=== PATIENT | female | born 1970 | race Caucasian/White ===

== ENCOUNTER 2021-05-19 08:52 | Inpatient (IN) ==
[2021-05-19 09:18] LABS: ABG BASE EXCESS -5.8 mmol/L (-2.0-2.0); ABG HCO3 18.3 mmol/L (22-26)
[2021-05-19 09:20] LABS: ABG ALLEN TEST POS
--- NOTE | 2021-05-19 10:01 | DR.GENAD ---
HPI Time Seen Time Seen by Provider: 05/19/21 09:15 HPI Comment HPI Comment: A 50 y/o female presents with SOB, having been tested COVID positive last week. Her O2 sat in Triage was in the 30s. COVID-19 Coronavirus symptoms experienced: Shortness of Breath Nurses notes reviewed Nurses Notes Review: Yes Source History Provided: Patient Mode of Arrival Mode of Arrival: Ambulatory Timing Came on: Gradually PMH PMH Past Medical History: Diabetes, Hypertension and Hypothyroidism Past Surgical History: Yes Surgical History: Social History Do you use any recreational Drugs:: No ROS Review of Systems Constitutional: Malaise and Fatigue Eyes: No Symptoms Reported ENTM: No Symptoms Reported Respiratoy: Short of Breath Cardiovascular: No Symptoms Reported Gastrointestinal/Abdominal: No Symptoms Reported Genitourinary: No Symptoms Reported Neurological: No Symptoms Reported Musculoskeletal: No Symptoms Reported Integumentary: No Symptoms Reported Hematologic/Lymphatic: No Symptoms Reported Endocrine: No Symptoms Reported Psychiatric: No Symptoms Reported PE Vital Signs Vitals: Temperature 99.9 F Pulse Rate [Apical] 99 Pulse Rate 108 Respiratory Rate 26 Blood Pressure [Left Arm] 135/64 Blood Pressure 156/69 O2 Sat by Pulse Oximetry 95 General Limitations: Physical Limitation General Appearance: Alert and In Distress Head Head Exam: Normal Inspection, Atraumatic and Normocephalic Eyes Eye exam: Normal Appearance, PERRL and EOMI ENT ENT Exam: Normal Exam, Normal Oropharynx, Normal External Ear Exam, Mucous Membranes Moist and TM's Normal Bilaterally Neck Neck Exam: Normal Inspection, Full ROM and Trachea Midline Chest Chest Inspection: Normal Inspection and Symmetric Chest Wall Rise Respiratory Respiratory Exam: Normal Lung Sounds Bilat Cardiovascular Cardiovascular Exam: Regular Rate, Normal Rhythm, Normal Heart Sounds, +S1 and +S2 Abdominal Exam Abdominal Exam: Normal Inspection, Normal Bowel Sounds and Soft Extremities Extremities Exam: Normal Inspection and Full ROM Back Back Exam: Normal Inspection and Full ROM Neurologic Neurological Exam: Alert and Oriented X3 Psychiatric Psychiatric Exam: Normal Affect and Normal Mood Skin Skin Exam: Intact and Normal Color COURSE Reevaluation 1st: Unchanged ROR Labs Reviewed Result Diagrams: 05/19/21 10:08 05/19/21 10:08 Laboratory: WBC 9.1 X10^3/uL (3.6-10.0) 05/19/21 10:08 RBC 4.25 X10^6/uL (3.5-5.4) 05/19/21 10:08 Hgb 12.9 g/dL (12.0-16.0) 05/19/21 10:08 Hct 37.6 % (36.0-47.0) 05/19/21 10:08 MCV 88.4 fL (80.0-100.0) 05/19/21 10:08 MCH 30.4 pg (27.0-34.0) 05/19/21 10:08 MCHC 34.3 g/dL (33.0-35.0) 05/19/21 10:08 RDW 13.6 % (11.6-16.5) 05/19/21 10:08 Plt Count 385 X10^3/uL (150.0-450.0) 05/19/21 10:08 MPV 7.1 fL (7.4-11.0) L 05/19/21 10:08 Neut % (Auto) 79.3 % (42.0-75.0) H 05/19/21 10:08 Lymph % (Auto) 14.9 % (21.0-51.0) L 05/19/21 10:08 [place] % (Auto) 5.3 % (0.0-13.0) 05/19/21 10:08 Eos % (Auto) 0.1 % (0.9-2.9) L 05/19/21 10:08 Baso % (Auto) 0.4 % (0.2-1.0) 05/19/21 10:08 Neut # (Auto) 7.2 x10^3/uL (2.2-4.8) H 05/19/21 10:08 Lymph # (Auto) 1.4 X10^3/uL (1.3-2.9) 05/19/21 10:08 [place] # (Auto) 0.5 x10^3/uL (0.3-0.8) 05/19/21 10:08 Eos # (Auto) 0.0 x10^3/uL (0.0-0.2) 05/19/21 10:08 Baso # (Auto) 0.0 X10^3/uL (0.0-0.1) 05/19/21 10:08 Absolute Nucleated RBC 0.1 /100WBC 05/19/21 10:08 D-Dimer 0.98 ug/ml (0.0-0.57) H* 05/19/21 10:08 Sample Site Rra 05/19/21 09:15 ABG pH 7.380 (7.35-7.45) 05/19/21 09:15 ABG pCO2 31.0 mmHg (35.0-45.0) L 05/19/21 09:15 ABG pO2 42.0 mmHg (80.0-100.0) L* 05/19/21 09:15 ABG HCO3 18.3 mmol/L (22-26) L 05/19/21 09:15 ABG O2 Saturation 76.0 % (90-100) L* 05/19/21 09:15 ABG Base Excess -5.8 mmol/L (-2.0-2.0) L 05/19/21 09:15 Julius Test Pos 05/19/21 09:15 A-a Gradient 632.0 mmHg 05/19/21 09:15 FiO2 100.0 05/19/21 09:15 Blood Gas Comments Pt arnulfo well eb 05/19/21 09:15 Sodium 140 mmol/L (136-145) 05/19/21 10:08 Corrected Sodium 146 mmol/L (136-145) H 05/19/21 10:08 Potassium 3.8 mmol/L (3.5-5.1) 05/19/21 10:08 Chloride 102 mmol/L (98-107) 05/19/21 10:08 Carbon Dioxide 20.8 mmol/L (21-32) L 05/19/21 10:08 BUN 14 mg/dL (7-18) 05/19/21 10:08 Creatinine 0.68 mg/dL (0.55-1.02) 05/19/21 10:08 Est GFR (MDRD) Af Amer > 60 (>60) 05/19/21 10:08 Est GFR (MDRD) Non-Af > 60 (>60) 05/19/21 10:08 Glucose 331 mg/dL (65-99) H 05/19/21 10:08 Calcium 9.3 mg/dL (8.5-10.1) 05/19/21 10:08 Corrected Calcium 10.4 mg/dL (8.5-10.1) H 05/19/21 10:08 Ferritin 1360 ng/mL (8-252) H 05/19/21 10:08 Total Bilirubin 0.70 mg/dL (0.2-1.0) 05/19/21 10:08 AST 42 Units/L (15-37) H 05/19/21 10:08 ALT 40 Units/L (12-78) 05/19/21 10:08 Alkaline Phosphatase 89 Units/L (46-116) 05/19/21 10:08 C-Reactive Protein 127.30 mg/L (0-3.0) H 05/19/21 10:08 B-Natriuretic Peptide 23.4 pg/mL (0-79) 05/19/21 10:08 Total Protein 7.6 g/dL (6.4-8.2) 05/19/21 10:08 Albumin 2.6 g/dL (3.4-5.0) L 05/19/21 10:08 Globulin 5.0 g/dL (2.5-4.5) H 05/19/21 10:08 Albumin/Globulin Ratio 0.5 Ratio (1.1-2.1) L 05/19/21 10:08 Opioid Opioid Risk Tool Age (Derek box if 16-45): No History of Preadolescent Sexual Abuse: No Total: 0 Total Score Risk Category: Low Risk Copyright: Thony JACOBS predicting aberrant behaviors Diagnosis Discharge Problem: Pneumonia due to 2019-nCoV, Hypoxemia ADDITIONAL NOTES Additional Notes Additional Notes: ISIAH SPICER Nam 50 F 1970 Name: ISIAH SPICER [facility]#: [id number]: [id number] : 1970ex: FLocation: ER Order Number(s): [id number](s):CHEST, 1 VIEW Ordering Physician: Sihra Vasquez Primary Care: SAY PEÑA Service Date: 05/12/21 Service Time: 0654 HISTORY PT STATES" I TESTED POSITIVE YESTERDAY FOR COVID AND MY HEAD HURTS AND I FEEL LIKE SOMETHING HEAVY IS SITTING IN MY CHEST" STUDY CHEST, 1 VIEW COMPARISON None TECHNIQUE AP view of the chest FINDINGS Cardiac and mediastinal contours are within normal limits. Small asymmetric peripheral left mid to lower lung opacity. No definite pleural effusion or pneumothorax. Soft tissue attenuation limits evaluation. IMPRESSION Small asymmetric left mid to lower lung peripheral opacity could represent early COVID 19 pneumonia. Electronically signed by: Ferdinand Tang (May 12, 2021 08:13:02) Report Electronically signed: 05/12/21 0816 CC: Shira Vasquez
[2021-05-19 10:25] LABS: BASOPHILS % (AUTO) 0.4 % (0.2-1.0); EOSINOPHILS % (AUTO) 0.1 % (0.9-2.9); HEMATOCRIT 37.6 % (36.0-47.0); HEMOGLOBIN 12.9 g/dL (12.0-16.0); LYMPHOCYTES # (AUTO) 1.4 X10^3/uL (1.3-2.9); LYMPHOCYTES % (AUTO) 14.9 % (21.0-51.0); MEAN CORPUSCULAR HEMOGLOBIN 30.4 pg (27.0-34.0); MEAN CORPUSCULAR HGB CONC 34.3 g/dL (33.0-35.0); MEAN CORPUSCULAR VOLUME 88.4 fL (80.0-100.0); MEAN PLATELET VOLUME 7.1 fL (7.4-11.0); MONOCYTES # (AUTO) 0.5 x10^3/uL (0.3-0.8); MONOCYTES % (AUTO) 5.3 % (0.0-13.0); NEUTROPHILS # (AUTO) 7.2 x10^3/uL (2.2-4.8); NEUTROPHILS % (AUTO) 79.3 % (42.0-75.0); PLATELET COUNT 385 X10^3/uL (150.0-450.0); RED BLOOD COUNT 4.25 X10^6/uL (3.5-5.4); RED CELL DISTRIBUTION WIDTH 13.6 % (11.6-16.5); WHITE BLOOD COUNT 9.1 X10^3/uL (3.6-10.0)
[2021-05-19 10:36] LABS: ALANINE AMINOTRANSFERASE 40 Units/L (12-78); ALBUMIN 2.6 g/dL (3.4-5.0); ALKALINE PHOSPHATASE 89 Units/L (46-116); ASPARTATE AMINO TRANSFERASE 42 Units/L (15-37); BLOOD UREA NITROGEN 14 mg/dL (7-18); CALCIUM 9.3 mg/dL (8.5-10.1); CARBON DIOXIDE 20.8 mmol/L (21-32); CHLORIDE 102 mmol/L (98-107); COR CA(FOR HYPOALB) 10.4 mg/dL (8.5-10.1); COR NA(FOR HYPERGLY) 146 mmol/L (136-145); CREATININE 0.68 mg/dL (0.55-1.02); SODIUM 140 mmol/L (136-145); TOTAL PROTEIN 7.6 g/dL (6.4-8.2); eGFR NON BLACK RACES > 60 (>60)
[2021-05-19] MEDS ORDERED: SOLU-Medrol 125 MG VIAL IVP ONE (10:52)
[2021-05-19] MEDS ORDERED: REMDESIVIR IV ONE (10:53)
[2021-05-19] MEDS ORDERED: SOLU-Medrol 125 MG VIAL ONE ×2 (10:53→14:39)
[2021-05-19] MEDS ORDERED: NS 250 ML IV 250 ML IV ONE (10:54)
[2021-05-19] MEDS ORDERED: REMDESIVIR 200 MG in NS 100 ML IV 140 ML IV ONE (10:55)
[2021-05-19 12:22] LABS: ABG BASE EXCESS -6.1 mmol/L (-2.0-2.0); ABG HCO3 18.9 mmol/L (22-26)
[2021-05-19 12:23] LABS: ABG ALLEN TEST POS
--- NOTE | 2021-05-19 12:31 | RAD ---
CHEST, 1 VIEWHISTORY: COVID, SOBStudy: Single view of the chest.Comparison:NoneFindings:The cardiomediastinal silhouette is normal. Bilateral interstitial prominence, and alveolar infiltrates. Osseous structures demonstrate no acute abnormality.IMPRESSION:1. Bilateral interstitial prominence and alveolar infiltrates. Findings may represent atypical infection, including viral etiologies.Electronically signed by: LIZBETH SOTELO (May 19, 2021 12:29:07)
[2021-05-19] MEDS ORDERED: SOLU-Medrol 40 MG VIAL IVP SCH (14:02)
[2021-05-19] MEDS: NS 1000 ML 1,000 ML IV SCH (14:20)
[2021-05-19] MEDS: ASCORBIC ACID INJ MULTI-DOSE VIAL 1,500 MG in NS 50 ML IV 50 ML IV SCH ×2 (14:21→22:44)
[2021-05-19] MEDS ORDERED: IVERMECTIN ONE (14:39)
[2021-05-19] MEDS ORDERED: ZOSYN VIAL 3.375 GRAMS IV ONE (14:39)
[2021-05-19] MEDS ORDERED: NS 100 ML IV + SPIKE MINIBAG* 100 ML IV ONE (14:39)
[2021-05-19] MEDS ORDERED: NS 1000 ML 1,000 ML ONE (14:39)
[2021-05-19] MEDS ORDERED: NS 100 ML IV 100 ML ONE (14:39)
[2021-05-19] MEDS ORDERED: ASCORBIC ACID INJ MULTI-DOSE VIAL IV ONE (14:40)
[2021-05-19] MEDS: ZOSYN VIAL 3.375 GRAMS 3.375 G in NS 100 ML IV + SPIKE MINIBAG* 100 ML IV SCH ×2 (14:46→22:44)
[2021-05-19] MEDS: IVERMECTIN PO SCH (14:46)
[2021-05-19] MEDS: SOLU-Medrol 125 MG VIAL IVP SCH ×2 (14:49→22:45)
[2021-05-19] MEDS ORDERED: TYLENOL 325 MG TAB PO PRN (16:12)
[2021-05-19] MEDS ORDERED: TYLENOL 325 MG TAB PO ONE (16:15)
[2021-05-19] MEDS ORDERED: AMARYL TAB 4 MG PO SCH (21:00)
[2021-05-19] MEDS ORDERED: [UNRECOGNIZED DRUG - REMARK] INTRANASAL SCH (21:00)
[2021-05-19] MEDS: BROVANA IN SCH (21:05)
[2021-05-19] MEDS: PULMICORT NEB TX 0.5 MG NEB SCH (21:05)
[2021-05-19] MEDS ORDERED: GLUCOPHAGE ONE (21:11)
[2021-05-19] MEDS: ZINC SULFATE PO SCH (22:44)
[2021-05-19] MEDS: PEPCID TAB 40 MG PO SCH (22:45)
[2021-05-19] MEDS: SINGULAIR TAB 10 MG PO SCH (22:45)
[2021-05-19] MEDS: GLUCOPHAGE PO SCH (22:46)
[2021-05-19] MEDS: LOVENOX INJ 60 MG SYR SC SCH (22:46)
[2021-05-19] MEDS ORDERED: ACTOS PO ONE (23:00)
[2021-05-20] MEDS: ASCORBIC ACID INJ MULTI-DOSE VIAL 1,500 MG in NS 50 ML IV 50 ML IV SCH ×4 (02:31→20:55)
[2021-05-20] MEDS: SOLU-Medrol 125 MG VIAL IVP SCH ×4 (02:31→22:00)
[2021-05-20] MEDS ORDERED: ATIVAN INJ 2 MG VIAL ONE (03:12)
[2021-05-20] MEDS ORDERED: ATIVAN INJ 2 MG VIAL IVP ONE (03:30)
[2021-05-20 06:14] LABS: BASOPHILS % (AUTO) 0.4 % (0.2-1.0); HEMATOCRIT 38.2 % (36.0-47.0); HEMOGLOBIN 12.6 g/dL (12.0-16.0); LYMPHOCYTES # (AUTO) 1.5 X10^3/uL (1.3-2.9); LYMPHOCYTES % (AUTO) 14.8 % (21.0-51.0); MEAN CORPUSCULAR HEMOGLOBIN 29.8 pg (27.0-34.0); MEAN CORPUSCULAR HGB CONC 32.8 g/dL (33.0-35.0); MEAN CORPUSCULAR VOLUME 90.8 fL (80.0-100.0); MEAN PLATELET VOLUME 7.3 fL (7.4-11.0); MONOCYTES # (AUTO) 0.5 x10^3/uL (0.3-0.8); MONOCYTES % (AUTO) 5.2 % (0.0-13.0); NEUTROPHILS # (AUTO) 7.9 x10^3/uL (2.2-4.8); NEUTROPHILS % (AUTO) 79.6 % (42.0-75.0); PLATELET COUNT 401 X10^3/uL (150.0-450.0); RED BLOOD COUNT 4.21 X10^6/uL (3.5-5.4); WHITE BLOOD COUNT 9.9 X10^3/uL (3.6-10.0)
[2021-05-20 06:25] LABS: ALANINE AMINOTRANSFERASE 43 Units/L (12-78); ALBUMIN 2.5 g/dL (3.4-5.0); ALKALINE PHOSPHATASE 105 Units/L (46-116); ASPARTATE AMINO TRANSFERASE 52 Units/L (15-37); BLOOD UREA NITROGEN 19 mg/dL (7-18); CALCIUM 8.7 mg/dL (8.5-10.1); CHLORIDE 110 mmol/L (98-107); COR CA(FOR HYPOALB) 9.9 mg/dL (8.5-10.1); COR NA(FOR HYPERGLY) 149 mmol/L (136-145); CREATININE 0.84 mg/dL (0.55-1.02); SODIUM 144 mmol/L (136-145); TOTAL PROTEIN 7.7 g/dL (6.4-8.2); eGFR NON BLACK RACES > 60 (>60)
[2021-05-20 06:31] LABS: CARBON DIOXIDE 11.4 mmol/L (21-32)
[2021-05-20] MEDS ORDERED: GLUCOPHAGE ONE (08:17)
[2021-05-20] MEDS ORDERED: INVOKANA PO SCH (09:00)
[2021-05-20] MEDS ORDERED: VITAMIN A PO SCH (09:00)
[2021-05-20] MEDS: ZINC SULFATE PO SCH (09:13)
[2021-05-20] MEDS: GLUCOPHAGE PO SCH (09:14)
[2021-05-20] MEDS: SYNTHROID 88 mcg TAB PO SCH (09:14)
[2021-05-20] MEDS: CELEXA PO SCH (09:14)
[2021-05-20] MEDS: IVERMECTIN PO SCH (09:15)
[2021-05-20] MEDS: NexIUM PO SCH (09:15)
[2021-05-20] MEDS: LIPITOR TAB 10 MG PO SCH (09:15)
[2021-05-20] MEDS: TRICOR TAB 160 MG PO SCH (09:16)
[2021-05-20] MEDS: REMDESIVIR 100 MG in NS 250 ML IV 250 ML IV SCH (09:16)
[2021-05-20] MEDS: PEPCID TAB 40 MG PO SCH (09:16)
[2021-05-20] MEDS: LOVENOX INJ 60 MG SYR SC SCH ×2 (09:22→20:54)
[2021-05-20] MEDS: FLONASE NASAL SPRAY ENOSTRIL SCH (09:22)
[2021-05-20] MEDS: PULMICORT NEB TX 0.5 MG NEB SCH ×2 (09:59→20:15)
[2021-05-20] MEDS: BROVANA IN SCH ×2 (09:59→20:15)
[2021-05-20] MEDS: ACTOS PO SCH (12:02)
[2021-05-20] MEDS: NS 1000 ML 1,000 ML IV SCH ×2 (13:55→14:29)
[2021-05-20] MEDS ORDERED: MORPHINE SULFATE INJ 10 MG IVP ONE (20:26)
[2021-05-20 21:47] LABS: BILIRUBIN,URINE NEGATIVE (NEGATIVE); BLOOD/HEMOGLOBIN,URINE 2+ (NEGATIVE); GLUCOSE, URINE 4+ (NEGATIVE); KETONES,URINE 4+ (NEGATIVE); LEUKOCYTE ESTERASE ,URINE NEGATIVE (NEGATIVE); NITRITES,URINE NEGATIVE (NEGATIVE); PROTEIN,URINE 3+ (NEGATIVE); UROBILINOGEN,URINE NORMAL (NORMAL)
[2021-05-20 21:52] LABS: APPEARANCE,URINE CLEAR (CLEAR); COLOR,URINE STRAW (YELLOW)
--- NOTE | 2021-05-20 21:56 | RAD ---
CHEST, 1 VIEWHISTORY: INCREASED SOB, CHANGE IN RESP STATUSStudy: Single view of the chest.Comparison:May 19, 2021Findings:The cardiomediastinal silhouette is normal. Bilateral interstitial prominence, alveolar infiltrates.No change from prior. Osseous structures demonstrate no acute abnormality.IMPRESSION:1. Bilateral interstitial prominence and alveolar infiltrates. No change from prior. Findings may represent atypical infection, including viral etiologies.Electronically signed by: LIZBETH SOTELO (May 20, 2021 21:54:04)
[2021-05-20 21:59] LABS: BACTERIA,URINE TRACE /HPF (NEGATIVE); GRANULAR CASTS,URINE MODERATE /LPF (NEGATIVE); RBC,URINE NONE SEEN /HPF (0-3); SQUAMOUS EPITHELIAL CELL,UR FEW /HPF (NEGATIVE)
[2021-05-20 21:59] LABS: ABG BASE EXCESS -21.5 mmol/L (-2.0-2.0)
[2021-05-20 22:00] LABS: ABG HCO3 7.2 mmol/L (22-26)
[2021-05-20] MEDS ORDERED: LANTUS SC ONE (22:08)
[2021-05-20] MEDS ORDERED: HumuLIN R SUBCUT STA (22:08)
[2021-05-20] MEDS ORDERED: SODIUM BICARBONATE 8.4% INJ ADULT IVP ONE (22:10)
[2021-05-21] MEDS: PEPCID TAB 40 MG PO SCH ×3 (00:20→21:08)
[2021-05-21] MEDS: GLUCOPHAGE PO SCH ×3 (00:20→21:07)
[2021-05-21] MEDS: SINGULAIR TAB 10 MG PO SCH ×2 (00:20→21:08)
[2021-05-21] MEDS: ZINC SULFATE PO SCH ×3 (00:21→21:08)
[2021-05-21] MEDS: SOLU-Medrol 125 MG VIAL IVP SCH ×4 (02:32→21:16)
[2021-05-21] MEDS: ASCORBIC ACID INJ MULTI-DOSE VIAL 1,500 MG in NS 50 ML IV 50 ML IV SCH ×4 (02:32→23:00)
[2021-05-21 05:55] LABS: ABG BASE EXCESS -18.7 mmol/L (-2.0-2.0)
[2021-05-21 05:57] LABS: ABG ALLEN TEST POS
[2021-05-21] MEDS ORDERED: SODIUM BICARBONATE 8.4% INJ ADULT IVP ONE (06:05)
[2021-05-21] MEDS ORDERED: NS 1000 ML 1,000 ML IV ONE (06:07)
[2021-05-21] MEDS ORDERED: NS 1000 ML 500 ML IV ONE (06:09)
[2021-05-21 06:18] LABS: BASOPHILS # (AUTO) 0.1 X10^3/uL (0.0-0.1); BASOPHILS % (AUTO) 0.6 % (0.2-1.0); HEMATOCRIT 40.8 % (36.0-47.0); HEMOGLOBIN 13.3 g/dL (12.0-16.0); LYMPHOCYTES # (AUTO) 2.4 X10^3/uL (1.3-2.9); LYMPHOCYTES % (AUTO) 14.2 % (21.0-51.0); MEAN CORPUSCULAR HEMOGLOBIN 29.9 pg (27.0-34.0); MEAN CORPUSCULAR HGB CONC 32.6 g/dL (33.0-35.0); MEAN CORPUSCULAR VOLUME 91.7 fL (80.0-100.0); MEAN PLATELET VOLUME 7.1 fL (7.4-11.0); MONOCYTES # (AUTO) 0.9 x10^3/uL (0.3-0.8); MONOCYTES % (AUTO) 5.5 % (0.0-13.0); NEUTROPHILS # (AUTO) 13.2 x10^3/uL (2.2-4.8); NEUTROPHILS % (AUTO) 79.7 % (42.0-75.0); PLATELET COUNT 584 X10^3/uL (150.0-450.0); RED BLOOD COUNT 4.45 X10^6/uL (3.5-5.4); RED CELL DISTRIBUTION WIDTH 14.7 % (11.6-16.5); WHITE BLOOD COUNT 16.6 X10^3/uL (3.6-10.0)
[2021-05-21] MEDS: HumuLIN R SUBCUT PRN ×2 (06:23→21:24)
[2021-05-21 06:41] LABS: ALANINE AMINOTRANSFERASE 48 Units/L (12-78); ALBUMIN 2.7 g/dL (3.4-5.0); ALKALINE PHOSPHATASE 155 Units/L (46-116); ASPARTATE AMINO TRANSFERASE 65 Units/L (15-37); BLOOD UREA NITROGEN 30 mg/dL (7-18); CALCIUM 9.3 mg/dL (8.5-10.1); COR CA(FOR HYPOALB) 10.3 mg/dL (8.5-10.1); COR NA(FOR HYPERGLY) 160 mmol/L (136-145); CREATININE 1.06 mg/dL (0.55-1.02); TOTAL PROTEIN 8.1 g/dL (6.4-8.2); eGFR NON BLACK RACES 58 (>60)
[2021-05-21 06:49] LABS: CARBON DIOXIDE 10.7 mmol/L (21-32); CHLORIDE 120 mmol/L (98-107); SODIUM 158 mmol/L (136-145)
[2021-05-21] MEDS ORDERED: NS 1000 ML 1,000 ML IV SCH (08:00)
[2021-05-21] MEDS ORDERED: GLUCOPHAGE ONE (08:19)
[2021-05-21] MEDS: PULMICORT NEB TX 0.5 MG NEB SCH ×2 (09:00→20:20)
[2021-05-21] MEDS: BROVANA IN SCH ×2 (09:00→20:20)
[2021-05-21] MEDS: LOVENOX INJ 60 MG SYR SC SCH ×2 (09:40→21:15)
[2021-05-21] MEDS: REMDESIVIR 100 MG in NS 250 ML IV 250 ML IV SCH (09:40)
[2021-05-21] MEDS: THIAMINE HCL INJ IVP SCH ×2 (09:41→21:16)
[2021-05-21 10:47] LABS: ABG BASE EXCESS -18.1 mmol/L (-2.0-2.0)
[2021-05-21 10:49] LABS: ABG ALLEN TEST POS; ABG HCO3 8.8 mmol/L (22-26)
[2021-05-21] MEDS: 1/2 NS IV SCH ×4 (12:26→20:00)
[2021-05-21] MEDS: SODIUM BICARBONATE IV SCH ×4 (12:26→20:00)
[2021-05-21] MEDS: D5 IV SCH ×4 (12:26→20:00)
[2021-05-21] MEDS: VITAMIN D3 125 mcg (5,000 UNITS) PO SCH (12:28)
[2021-05-21] MEDS: FLONASE NASAL SPRAY ENOSTRIL SCH (12:28)
[2021-05-21] MEDS: LIPITOR TAB 10 MG PO SCH (12:28)
[2021-05-21] MEDS: IVERMECTIN PO SCH (12:28)
[2021-05-21] MEDS: VITAMIN A PO SCH (12:28)
[2021-05-21] MEDS: ACTOS PO SCH (12:28)
[2021-05-21] MEDS: SYNTHROID 88 mcg TAB PO SCH (12:29)
[2021-05-21] MEDS: CELEXA PO SCH (12:29)
[2021-05-21] MEDS: NexIUM PO SCH (12:29)
[2021-05-21] MEDS: TRICOR TAB 160 MG PO SCH (12:29)
[2021-05-21 17:38] LABS: BASOPHILS # (AUTO) 0.1 X10^3/uL (0.0-0.1); BASOPHILS % (AUTO) 0.4 % (0.2-1.0); HEMATOCRIT 42.5 % (36.0-47.0); HEMOGLOBIN 13.4 g/dL (12.0-16.0); LYMPHOCYTES # (AUTO) 2.3 X10^3/uL (1.3-2.9); LYMPHOCYTES % (AUTO) 11.8 % (21.0-51.0); MEAN CORPUSCULAR HEMOGLOBIN 29.6 pg (27.0-34.0); MEAN CORPUSCULAR HGB CONC 31.7 g/dL (33.0-35.0); MEAN CORPUSCULAR VOLUME 93.4 fL (80.0-100.0); MEAN PLATELET VOLUME 7.2 fL (7.4-11.0); MONOCYTES # (AUTO) 1.1 x10^3/uL (0.3-0.8); MONOCYTES % (AUTO) 5.7 % (0.0-13.0); NEUTROPHILS % (AUTO) 82.1 % (42.0-75.0); PLATELET COUNT 712 X10^3/uL (150.0-450.0); RED BLOOD COUNT 4.54 X10^6/uL (3.5-5.4); RED CELL DISTRIBUTION WIDTH 15.1 % (11.6-16.5); WHITE BLOOD COUNT 19.5 X10^3/uL (3.6-10.0)
[2021-05-21 17:43] LABS: ALANINE AMINOTRANSFERASE 53 Units/L (12-78); ALBUMIN 2.6 g/dL (3.4-5.0); ALKALINE PHOSPHATASE 134 Units/L (46-116); ASPARTATE AMINO TRANSFERASE 78 Units/L (15-37); BLOOD UREA NITROGEN 25 mg/dL (7-18); CALCIUM 8.9 mg/dL (8.5-10.1); COR NA(FOR HYPERGLY) 167 mmol/L (136-145); CREATININE 1.11 mg/dL (0.55-1.02); TOTAL PROTEIN 7.8 g/dL (6.4-8.2); eGFR NON BLACK RACES 55 (>60)
[2021-05-21 17:46] LABS: SODIUM 164 mmol/L (136-145)
[2021-05-21 18:03] LABS: CARBON DIOXIDE 9.7 mmol/L (21-32); CHLORIDE 125 mmol/L (98-107)
[2021-05-21 18:19] LABS: ABG BASE EXCESS -20.6 mmol/L (-2.0-2.0); ABG HCO3 6.7 mmol/L (22-26)
[2021-05-21 18:20] LABS: ABG ALLEN TEST POS
[2021-05-21] MEDS ORDERED: SNACK - Diabetic Appropriate PO SCH (20:00)
[2021-05-21] MEDS ORDERED: VANCOMYCIN IV *PREMIX 1 G/200 ML BAG 1 G/200 ML PIGGYBACK IV STA (20:36)
[2021-05-21] MEDS ORDERED: ZOSYN VIAL 4.5 GRAMS 4.5 G in NS 100 ML IV + SPIKE MINIBAG* 100 ML IV STA (20:45)
[2021-05-21] MEDS ORDERED: LR 1000 ML IV 1,000 ML IV ONE (20:56)
[2021-05-21] MEDS: ZOSYN VIAL 3.375 GRAMS 3.375 G in NS 100 ML IV + SPIKE MINIBAG* 100 ML IV SCH (22:00)
[2021-05-22] MEDS: FLAGYL IV PREMIX 500 MG BAG 500 MG/100 ML BAG IV SCH (02:08)
[2021-05-22] MEDS ORDERED: LR 1000 ML IV 1,000 ML IV ONE ×2 (02:12→10:11)
[2021-05-22] MEDS: ASCORBIC ACID INJ MULTI-DOSE VIAL 1,500 MG in NS 50 ML IV 50 ML IV SCH ×4 (03:05→21:05)
[2021-05-22] MEDS: SOLU-Medrol 125 MG VIAL IVP SCH ×4 (03:06→21:10)
[2021-05-22] MEDS: SODIUM BICARBONATE IV SCH ×2 (03:15)
[2021-05-22] MEDS: D5 IV SCH ×2 (03:15)
[2021-05-22] MEDS: 1/2 NS IV SCH ×2 (03:15)
[2021-05-22 06:01] LABS: ABG BASE EXCESS -16.8 mmol/L (-2.0-2.0)
[2021-05-22 06:02] LABS: ABG ALLEN TEST POS; ABG HCO3 8.8 mmol/L (22-26)
[2021-05-22] MEDS: ZOSYN VIAL 3.375 GRAMS 3.375 G in NS 100 ML IV + SPIKE MINIBAG* 100 ML IV SCH ×3 (06:06→21:19)
[2021-05-22] MEDS: HumuLIN R SUBCUT PRN (06:07)
[2021-05-22] MEDS ORDERED: NS 250 ML IV 250 ML IV ONE (07:59)
[2021-05-22] MEDS: REMDESIVIR 100 MG in NS 250 ML IV 250 ML IV SCH (08:50)
[2021-05-22] MEDS: ACTOS PO SCH (08:51)
[2021-05-22] MEDS: CELEXA PO SCH (08:52)
[2021-05-22] MEDS: ZINC SULFATE PO SCH ×2 (08:56→21:19)
[2021-05-22] MEDS: SYNTHROID 88 mcg TAB PO SCH (08:56)
[2021-05-22] MEDS: TRICOR TAB 160 MG PO SCH (08:57)
[2021-05-22] MEDS: VITAMIN A PO SCH (08:57)
[2021-05-22] MEDS: VITAMIN D3 125 mcg (5,000 UNITS) PO SCH (08:57)
[2021-05-22] MEDS: THIAMINE HCL INJ IVP SCH ×3 (08:57→21:19)
[2021-05-22] MEDS: NexIUM PO SCH (08:58)
[2021-05-22] MEDS: LIPITOR TAB 10 MG PO SCH (08:58)
[2021-05-22] MEDS: PEPCID TAB 40 MG PO SCH ×2 (08:58→21:07)
[2021-05-22] MEDS: GLUCOPHAGE PO SCH ×2 (08:59→21:06)
[2021-05-22] MEDS: IVERMECTIN PO SCH (08:59)
[2021-05-22] MEDS: FLONASE NASAL SPRAY ENOSTRIL SCH (08:59)
[2021-05-22] MEDS: LOVENOX INJ 60 MG SYR SC SCH ×2 (09:12→21:06)
[2021-05-22] MEDS: PULMICORT NEB TX 0.5 MG NEB SCH ×2 (09:20→20:35)
[2021-05-22] MEDS: BROVANA IN SCH ×2 (09:20→20:35)
[2021-05-22 09:27] LABS: ALBUMIN 2.5 g/dL (3.4-5.0); BASOPHILS # (AUTO) 0.1 X10^3/uL (0.0-0.1); BASOPHILS % (AUTO) 0.6 % (0.2-1.0); CALCIUM 9.1 mg/dL (8.5-10.1); COR CA(FOR HYPOALB) 10.3 mg/dL (8.5-10.1); CREATININE 1.25 mg/dL (0.55-1.02); HEMATOCRIT 41.7 % (36.0-47.0); HEMOGLOBIN 13.7 g/dL (12.0-16.0); LYMPHOCYTES # (AUTO) 1.1 X10^3/uL (1.3-2.9); MEAN CORPUSCULAR HEMOGLOBIN 29.4 pg (27.0-34.0); MEAN CORPUSCULAR HGB CONC 32.7 g/dL (33.0-35.0); MEAN CORPUSCULAR VOLUME 89.7 fL (80.0-100.0); MONOCYTES # (AUTO) 0.9 x10^3/uL (0.3-0.8); MONOCYTES % (AUTO) 7.1 % (0.0-13.0); NEUTROPHILS # (AUTO) 11.2 x10^3/uL (2.2-4.8); NEUTROPHILS % (AUTO) 84.3 % (42.0-75.0); PLATELET COUNT 671 X10^3/uL (150.0-450.0); RED BLOOD COUNT 4.65 X10^6/uL (3.5-5.4); TOTAL PROTEIN 7.4 g/dL (6.4-8.2); WHITE BLOOD COUNT 13.3 X10^3/uL (3.6-10.0)
[2021-05-22 10:13] LABS: CARBON DIOXIDE 10.9 mmol/L (21-32)
[2021-05-22 11:16] LABS: ABG BASE EXCESS -15.7 mmol/L (-2.0-2.0)
[2021-05-22 11:17] LABS: ABG ALLEN TEST POSITIVE; ABG HCO3 9.9 mmol/L (22-26)
[2021-05-22] MEDS: LR 1000 ML IV 1,000 ML IV SCH ×2 (12:18→21:03)
[2021-05-22] MEDS: SINGULAIR TAB 10 MG PO SCH (21:07)
[2021-05-23] MEDS: ASCORBIC ACID INJ MULTI-DOSE VIAL 1,500 MG in NS 50 ML IV 50 ML IV SCH ×4 (02:32→20:44)
[2021-05-23] MEDS: LR 1000 ML IV 1,000 ML IV SCH ×2 (02:33→08:45)
[2021-05-23] MEDS: SOLU-Medrol 125 MG VIAL IVP SCH ×4 (02:34→20:48)
[2021-05-23 04:33] LABS: ABG BASE EXCESS -19.5 mmol/L (-2.0-2.0); ABG HCO3 9.1 mmol/L (22-26)
[2021-05-23 04:34] LABS: ABG ALLEN TEST POS
[2021-05-23 04:45] LABS: ABG BASE EXCESS -19.5 mmol/L (-2.0-2.0); ABG HCO3 9.1 mmol/L (22-26)
[2021-05-23 04:46] LABS: ABG ALLEN TEST POS
[2021-05-23] MEDS ORDERED: SODIUM BICARBONATE 8.4% INJ ADULT IVP ONE (05:01)
[2021-05-23] MEDS: ZOSYN VIAL 3.375 GRAMS 3.375 G in NS 100 ML IV + SPIKE MINIBAG* 100 ML IV SCH ×3 (05:46→22:09)
[2021-05-23 06:45] LABS: BASOPHILS % (AUTO) 0.1 % (0.2-1.0); HEMATOCRIT 37.5 % (36.0-47.0); LYMPHOCYTES % (AUTO) 7.5 % (21.0-51.0); MEAN CORPUSCULAR HEMOGLOBIN 29.5 pg (27.0-34.0); MEAN CORPUSCULAR HGB CONC 31.9 g/dL (33.0-35.0); MEAN CORPUSCULAR VOLUME 92.5 fL (80.0-100.0); MEAN PLATELET VOLUME 7.3 fL (7.4-11.0); MONOCYTES # (AUTO) 0.9 x10^3/uL (0.3-0.8); MONOCYTES % (AUTO) 6.5 % (0.0-13.0); NEUTROPHILS # (AUTO) 11.2 x10^3/uL (2.2-4.8); NEUTROPHILS % (AUTO) 85.9 % (42.0-75.0); PLATELET COUNT 514 X10^3/uL (150.0-450.0); RED BLOOD COUNT 4.05 X10^6/uL (3.5-5.4); RED CELL DISTRIBUTION WIDTH 16.3 % (11.6-16.5); WHITE BLOOD COUNT 13.1 X10^3/uL (3.6-10.0)
[2021-05-23 07:04] LABS: ALBUMIN 2.1 g/dL (3.4-5.0); CALCIUM 9.3 mg/dL (8.5-10.1); COR CA(FOR HYPOALB) 10.8 mg/dL (8.5-10.1); CREATININE 1.75 mg/dL (0.55-1.02); TOTAL PROTEIN 6.8 g/dL (6.4-8.2)
[2021-05-23 07:56] LABS: CARBON DIOXIDE 14.5 mmol/L (21-32)
[2021-05-23] MEDS: FLAGYL IV PREMIX 500 MG BAG 500 MG/100 ML BAG IV SCH ×4 (07:57→21:11)
[2021-05-23] MEDS: ACTOS PO SCH (08:45)
[2021-05-23] MEDS: TRICOR TAB 160 MG PO SCH (08:46)
[2021-05-23] MEDS: VITAMIN A PO SCH (08:46)
[2021-05-23] MEDS: ZINC SULFATE PO SCH ×2 (08:46→20:48)
[2021-05-23] MEDS: THIAMINE HCL INJ IVP SCH ×2 (08:46→20:48)
[2021-05-23] MEDS: SYNTHROID 88 mcg TAB PO SCH (08:46)
[2021-05-23] MEDS: VITAMIN D3 125 mcg (5,000 UNITS) PO SCH (08:46)
[2021-05-23] MEDS: LIPITOR TAB 10 MG PO SCH (08:47)
[2021-05-23] MEDS: NexIUM PO SCH (08:47)
[2021-05-23] MEDS: PEPCID TAB 40 MG PO SCH ×2 (08:47→20:48)
[2021-05-23] MEDS: REMDESIVIR 100 MG in NS 250 ML IV 250 ML IV SCH (08:47)
[2021-05-23] MEDS: IVERMECTIN PO SCH (08:48)
[2021-05-23] MEDS: GLUCOPHAGE PO SCH ×2 (08:48→20:45)
[2021-05-23] MEDS: FLONASE NASAL SPRAY ENOSTRIL SCH (08:48)
[2021-05-23] MEDS: CELEXA PO SCH (08:48)
[2021-05-23] MEDS: BROVANA IN SCH ×2 (09:48→20:52)
[2021-05-23] MEDS: PULMICORT NEB TX 0.5 MG NEB SCH ×2 (09:48→20:52)
[2021-05-23] MEDS: LEVOPHED INJ 8 MG in D5W 250 ML IV 242 ML IV PRN ×3 (10:10→23:10)
[2021-05-23] MEDS ORDERED: NS 1/2 1000 ML IV 1,000 ML IV ONE ×4 (10:54→19:57)
[2021-05-23] MEDS: NS 1/2 1000 ML IV 1,000 ML IV SCH ×2 (12:00→19:52)
[2021-05-23] MEDS: LOVENOX INJ 60 MG SYR SC SCH ×2 (12:00→20:45)
[2021-05-23] MEDS: HumuLIN R SUBCUT PRN ×2 (17:30→20:47)
[2021-05-23] MEDS: SINGULAIR TAB 10 MG PO SCH (20:48)
[2021-05-23 21:28] LABS: CALCIUM 7.9 mg/dL (8.5-10.1); CARBON DIOXIDE 16.4 mmol/L (21-32); CREATININE 2.74 mg/dL (0.55-1.02)
[2021-05-24] MEDS: NS 1/2 1000 ML IV 1,000 ML IV SCH ×3 (02:14→18:16)
[2021-05-24] MEDS: ASCORBIC ACID INJ MULTI-DOSE VIAL 1,500 MG in NS 50 ML IV 50 ML IV SCH ×4 (02:15→20:05)
[2021-05-24] MEDS: SOLU-Medrol 125 MG VIAL IVP SCH ×4 (02:18→20:05)
[2021-05-24] MEDS: FLAGYL IV PREMIX 500 MG BAG 500 MG/100 ML BAG IV SCH ×4 (02:22→20:41)
[2021-05-24] MEDS ORDERED: LEVOPHED INJ ONE (03:39)
[2021-05-24] MEDS: LEVOPHED INJ 8 MG in D5W 250 ML IV 242 ML IV PRN ×4 (04:00→18:16)
[2021-05-24] MEDS ORDERED: D5W 250 ML IV 250 ML IV ONE (04:37)
[2021-05-24] MEDS: ZOSYN VIAL 3.375 GRAMS 3.375 G in NS 100 ML IV + SPIKE MINIBAG* 100 ML IV SCH ×2 (05:27→21:59)
[2021-05-24] MEDS ORDERED: NS 1/2 1000 ML IV 1,000 ML IV ONE ×2 (05:43→18:08)
[2021-05-24 05:44] LABS: BASOPHILS % (AUTO) 0.3 % (0.2-1.0); HEMATOCRIT 26.8 % (36.0-47.0); HEMOGLOBIN 8.9 g/dL (12.0-16.0); LYMPHOCYTES # (AUTO) 0.8 X10^3/uL (1.3-2.9); LYMPHOCYTES % (AUTO) 11.3 % (21.0-51.0); MEAN CORPUSCULAR HGB CONC 33.2 g/dL (33.0-35.0); MEAN CORPUSCULAR VOLUME 90.6 fL (80.0-100.0); MEAN PLATELET VOLUME 7.4 fL (7.4-11.0); MONOCYTES # (AUTO) 0.4 x10^3/uL (0.3-0.8); MONOCYTES % (AUTO) 5.4 % (0.0-13.0); NEUTROPHILS # (AUTO) 6.2 x10^3/uL (2.2-4.8); PLATELET COUNT 300 X10^3/uL (150.0-450.0); RED BLOOD COUNT 2.96 X10^6/uL (3.5-5.4); WHITE BLOOD COUNT 7.5 X10^3/uL (3.6-10.0)
[2021-05-24 06:04] LABS: ABG BASE EXCESS -10.4 mmol/L (-2.0-2.0)
[2021-05-24 06:10] LABS: ALBUMIN 1.6 g/dL (3.4-5.0); CALCIUM 7.5 mg/dL (8.5-10.1); CARBON DIOXIDE 19.4 mmol/L (21-32); COR CA(FOR HYPOALB) 9.4 mg/dL (8.5-10.1); CREATININE 3.05 mg/dL (0.55-1.02); TOTAL PROTEIN 5.1 g/dL (6.4-8.2)
[2021-05-24] MEDS: HumuLIN R SUBCUT PRN ×4 (06:32→20:06)
[2021-05-24 06:54] LABS: ABG ALLEN TEST POS; ABG HCO3 16.3 mmol/L (22-26)
--- NOTE | 2021-05-24 07:56 | RAD ---
HISTORYSEPSISSTUDYCHEST, 1 [id number]/19/21.TECHNIQUEAP view of the chestFINDINGSCardiac and mediastinal contours are within normal limits. No significant change in bilateral airspace and interstitial opacities. No definite pleural effusion or pneumothorax. Soft tissue attenuation limits evaluation.IMPRESSIONNo significant change.Electronically signed by: Ferdinand Tang (May 24, 2021 07:54:08)
[2021-05-24] MEDS ORDERED: LR 1000 ML IV 1,000 ML IV ONE ×2 (08:37→11:04)
[2021-05-24] MEDS ORDERED: LOVENOX INJ 60 MG SYR SC SCH (10:00)
[2021-05-24] MEDS ORDERED: PEPCID TAB 20 MG PO SCH (10:00)
[2021-05-24] MEDS: PULMICORT NEB TX 0.5 MG NEB SCH ×2 (10:06→21:10)
[2021-05-24] MEDS: BROVANA IN SCH ×2 (10:06→21:10)
[2021-05-24] MEDS: ACTOS PO SCH (10:12)
[2021-05-24] MEDS: VITAMIN A PO SCH (10:12)
[2021-05-24] MEDS: ZINC SULFATE PO SCH (10:12)
[2021-05-24] MEDS: VITAMIN D3 125 mcg (5,000 UNITS) PO SCH (10:12)
[2021-05-24] MEDS: TRICOR TAB 160 MG PO SCH (10:13)
[2021-05-24] MEDS: CELEXA PO SCH (10:13)
[2021-05-24] MEDS: LIPITOR TAB 10 MG PO SCH (10:14)
[2021-05-24] MEDS: REMDESIVIR 100 MG in NS 250 ML IV 250 ML IV SCH (10:14)
[2021-05-24] MEDS: FLONASE NASAL SPRAY ENOSTRIL SCH (10:14)
[2021-05-24] MEDS: GLUCOPHAGE PO SCH (10:14)
[2021-05-24] MEDS: THIAMINE HCL INJ IVP SCH ×2 (10:15→20:05)
[2021-05-24 18:48] LABS: CALCIUM 7.2 mg/dL (8.5-10.1); CARBON DIOXIDE 20.5 mmol/L (21-32); CREATININE 3.07 mg/dL (0.55-1.02)
[2021-05-25] MEDS ORDERED: NS 1/2 1000 ML IV 1,000 ML IV ONE ×2 (01:05→17:55)
[2021-05-25] MEDS: NS 1/2 1000 ML IV 1,000 ML IV SCH ×3 (01:34→17:41)
[2021-05-25] MEDS: SOLU-Medrol 125 MG VIAL IVP SCH ×4 (02:04→21:31)
[2021-05-25] MEDS: ASCORBIC ACID INJ MULTI-DOSE VIAL 1,500 MG in NS 50 ML IV 50 ML IV SCH ×4 (02:04→21:30)
[2021-05-25] MEDS: FLAGYL IV PREMIX 500 MG BAG 500 MG/100 ML BAG IV SCH ×4 (02:13→21:31)
[2021-05-25 05:02] LABS: BASOPHILS % (AUTO) 0.2 % (0.2-1.0); HEMATOCRIT 22.3 % (36.0-47.0); HEMOGLOBIN 7.7 g/dL (12.0-16.0); LYMPHOCYTES # (AUTO) 0.7 X10^3/uL (1.3-2.9); LYMPHOCYTES % (AUTO) 7.1 % (21.0-51.0); MEAN CORPUSCULAR HEMOGLOBIN 30.6 pg (27.0-34.0); MEAN CORPUSCULAR HGB CONC 34.4 g/dL (33.0-35.0); MEAN CORPUSCULAR VOLUME 88.7 fL (80.0-100.0); MEAN PLATELET VOLUME 7.5 fL (7.4-11.0); MONOCYTES # (AUTO) 0.2 x10^3/uL (0.3-0.8); MONOCYTES % (AUTO) 2.4 % (0.0-13.0); NEUTROPHILS # (AUTO) 9.1 x10^3/uL (2.2-4.8); NEUTROPHILS % (AUTO) 90.3 % (42.0-75.0); PLATELET COUNT 204 X10^3/uL (150.0-450.0); RED BLOOD COUNT 2.51 X10^6/uL (3.5-5.4); RED CELL DISTRIBUTION WIDTH 15.4 % (11.6-16.5)
[2021-05-25 05:14] LABS: ALBUMIN 1.5 g/dL (3.4-5.0); CALCIUM 7.2 mg/dL (8.5-10.1); CARBON DIOXIDE 20.5 mmol/L (21-32); COR CA(FOR HYPOALB) 9.2 mg/dL (8.5-10.1); CREATININE 3.02 mg/dL (0.55-1.02); TOTAL PROTEIN 4.7 g/dL (6.4-8.2)
[2021-05-25] MEDS: HumuLIN R SUBCUT PRN ×4 (05:25→21:31)
[2021-05-25 05:46] LABS: PLATELET MORPHOLOGY COMMENT NORMAL (NORMAL)
[2021-05-25] MEDS: PULMICORT NEB TX 0.5 MG NEB SCH ×2 (09:00→20:15)
[2021-05-25] MEDS: BROVANA IN SCH ×2 (09:00→20:15)
[2021-05-25] MEDS ORDERED: LR 1000 ML IV 2,000 ML IV ONE (10:02)
[2021-05-25 10:16] LABS: ABG ALLEN TEST POS; ABG BASE EXCESS -6.3 mmol/L (-2.0-2.0)
[2021-05-25] MEDS: PROTONIX INJ 40 MG VIAL IVP SCH (10:31)
[2021-05-25] MEDS: FLONASE NASAL SPRAY ENOSTRIL SCH (10:31)
[2021-05-25] MEDS: PEPCID 20 MG IV PREMIX* 20 MG/50 ML BAG IV SCH (10:31)
[2021-05-25] MEDS: VITAMIN A PO SCH (10:32)
[2021-05-25] MEDS: SYNTHROID INJ 100 mcg VIAL IVP SCH (10:32)
[2021-05-25] MEDS: THIAMINE HCL INJ IVP SCH ×2 (10:32→21:30)
[2021-05-25] MEDS: ZOSYN VIAL 3.375 GRAMS 3.375 G in NS 100 ML IV + SPIKE MINIBAG* 100 ML IV SCH ×2 (10:32→22:47)
[2021-05-25] MEDS ORDERED: NS 250 ML IV 500 ML IV ONE (14:11)
[2021-05-25] MEDS: LEVOPHED INJ 8 MG in D5W 250 ML IV 242 ML IV PRN (17:38)
[2021-05-25 20:37] LABS: HEMATOCRIT 32.2 % (36.0-47.0)
[2021-05-26] MEDS: NS 1/2 1000 ML IV 1,000 ML IV SCH ×2 (01:36→07:57)
[2021-05-26] MEDS: ASCORBIC ACID INJ MULTI-DOSE VIAL 1,500 MG in NS 50 ML IV 50 ML IV SCH ×3 (02:00→15:28)
[2021-05-26] MEDS: SOLU-Medrol 125 MG VIAL IVP SCH ×4 (02:25→21:00)
[2021-05-26] MEDS: FLAGYL IV PREMIX 500 MG BAG 500 MG/100 ML BAG IV SCH ×3 (03:00→15:29)
[2021-05-26 04:31] LABS: ABG BASE EXCESS -7.2 mmol/L (-2.0-2.0)
[2021-05-26 04:32] LABS: ABG ALLEN TEST POS; ABG HCO3 15.8 mmol/L (22-26)
[2021-05-26 05:14] LABS: BASOPHILS % (AUTO) 0.3 % (0.2-1.0); HEMATOCRIT 29.4 % (36.0-47.0); HEMOGLOBIN 10.1 g/dL (12.0-16.0); LYMPHOCYTES # (AUTO) 0.5 X10^3/uL (1.3-2.9); LYMPHOCYTES % (AUTO) 5.1 % (21.0-51.0); MEAN CORPUSCULAR HEMOGLOBIN 30.7 pg (27.0-34.0); MEAN CORPUSCULAR HGB CONC 34.4 g/dL (33.0-35.0); MEAN CORPUSCULAR VOLUME 89.4 fL (80.0-100.0); MEAN PLATELET VOLUME 7.7 fL (7.4-11.0); MONOCYTES # (AUTO) 0.2 x10^3/uL (0.3-0.8); MONOCYTES % (AUTO) 1.9 % (0.0-13.0); NEUTROPHILS # (AUTO) 9.1 x10^3/uL (2.2-4.8); NEUTROPHILS % (AUTO) 92.7 % (42.0-75.0); PLATELET COUNT 103 X10^3/uL (150.0-450.0); RED BLOOD COUNT 3.29 X10^6/uL (3.5-5.4); WHITE BLOOD COUNT 9.8 X10^3/uL (3.6-10.0)
[2021-05-26 05:27] LABS: ALBUMIN 1.4 g/dL (3.4-5.0); CALCIUM 6.7 mg/dL (8.5-10.1); CARBON DIOXIDE 19.6 mmol/L (21-32); COR CA(FOR HYPOALB) 8.8 mg/dL (8.5-10.1); CREATININE 2.87 mg/dL (0.55-1.02); TOTAL PROTEIN 4.5 g/dL (6.4-8.2)
[2021-05-26] MEDS: HumuLIN R SUBCUT PRN ×3 (05:48→17:37)
[2021-05-26 06:20] LABS: PLATELET MORPHOLOGY COMMENT NORMAL (NORMAL)
[2021-05-26] MEDS ORDERED: NS 1/2 1000 ML IV 1,000 ML IV ONE ×2 (07:55→20:31)
[2021-05-26] MEDS: PROTONIX INJ 40 MG VIAL IVP SCH (08:50)
[2021-05-26] MEDS: FLONASE NASAL SPRAY ENOSTRIL SCH (08:50)
[2021-05-26] MEDS: PEPCID 20 MG IV PREMIX* 20 MG/50 ML BAG IV SCH (08:50)
[2021-05-26] MEDS: SYNTHROID INJ 100 mcg VIAL IVP SCH (08:51)
[2021-05-26] MEDS: VITAMIN A PO SCH (08:51)
[2021-05-26] MEDS: THIAMINE HCL INJ IVP SCH (08:51)
[2021-05-26] MEDS: K-RIDER 10 MEQ/NS 100 ML 10 MEQ/100 ML BAG IV SCH ×2 (08:59→10:00)
[2021-05-26] MEDS: ZOSYN VIAL 3.375 GRAMS 3.375 G in NS 100 ML IV + SPIKE MINIBAG* 100 ML IV SCH (09:34)
[2021-05-26 09:40] VITALS: BMI 27.7
[2021-05-26] MEDS: BROVANA IN SCH ×2 (09:50→21:00)
[2021-05-26] MEDS: PULMICORT NEB TX 0.5 MG NEB SCH ×2 (09:50→21:00)
--- NOTE | 2021-05-26 14:08 | RAD ---
HISTORYSEPSISSTUDYCHEST x-ray, 1 VIEWCOMPARISONX-ray 05/24/2021FINDINGSBilateral lung infiltrates could be pneumonia and/or pulmonary edema. Borderline CHF changes. No pneumothorax or pleural effusion.IMPRESSIONAppearance of the chest is unchanged.Electronically signed by: Ash Merrill (May 26, 2021 14:07:11)
--- NOTE | 2021-05-26 14:59 | CT ---
HISTORYcovid, unresponsive, sepsisSTUDYCT abdomen pelvis without IV contrastCOMPARISONNoneTECHNIQUEMultiple axial images of the abdomen and pelvis were obtained from the lung bases to the pubic symphysis without the administration of IV contrast. Dose reduction techniques including Automated Exposure Control (AEC) and adjustment of mA and kV were utilized.FINDINGSThe visualized portions of the lung bases reveal bilateral pneumonia. Degree of pulmonary edema from CHF is not excluded. Probable mild atelectasis is seen in the CP angles, also.Liver is top normal limits in size. There is probable fatty infiltration of the liver. Spleen is normal in size.Gallbladder is not well-distended and wall thickness is not well evaluated. No gallstones are seen. No biliary ductal dilation.No pancreatic abnormality is seen.The adrenal glands appear normal.No hydronephrosis or renal abnormality is seen. Phleboliths are seen in the pelvis. No suggestion of ureteral stone. Bladder is decompressed with a Carty catheter and not well evaluated.Stomach is not well distended but there is concern for possible diffuse wall edema. Probable wall thickening is seen within the small bowel and possibly portions of the ascending, transverse, and descending colon. Consider gastroenteritis and colitis. Appendix is not seen but no suggestion of appendicitis is seen.No adnexal masses are seen.Phlebolith is seen in right ovarian vein. Abdominal aorta is normal in size. Right femoral line terminates in the region of the right common iliac vein.Shotty likely reactive mesenteric lymph nodes are seen mild hazy edema in the small bowel mesentery. This edema may be associated with the ascites or may be inflammation from small-bowel enteritis.Moderate ascites is seen.No acute bony abnormality is seen.IMPRESSIONPossible gastroenteritis and colitis.Moderate ascites.Bilateral pneumonia. Possible CHF and some of the lung densities could be due to pulmonary edema.Electronically signed by: Ash Merrill (May 26, 2021 14:57:28)
[2021-05-26] MEDS: ATIVAN INJ 2 MG VIAL IVP PRN ×3 (17:50→18:15)
[2021-05-26] MEDS ORDERED: ATIVAN INJ 2 MG VIAL ONE (18:11)
[2021-05-26] MEDS ORDERED: CEREBYX INJ IVP ONE (18:27)
[2021-05-26] MEDS ORDERED: LASIX IVP ONE ×2 (18:27→21:24)
[2021-05-26] MEDS ORDERED: ATIVAN INJ 2 MG VIAL IVP PRN (18:54)
--- NOTE | 2021-05-26 18:59 | CT ---
BRAIN W/O CONCLINICAL INDICATION: NEW ONSET SEZUCYDNEY, COVIDTECHNIQUE: Images were obtained through the head per standard CT protocol. Multiplanar reformatted images were generated from the CT dataset. Dose reduction techniques including Automated Exposure Control (AEC) and adjustment of mA and kV were utlized.COMPARISON:None.FINDINGS:There is no abnormal brain parenchymal density . There is no evidence of acute infarction, intracranial hemorrhage, mass or mass effect, or abnormal extra-axial collection . The density of the larger dural venous sinuses is normal . The ventricles are normal in size, shape and position . The skull base and calvarium are normal.Bilateral mastoid effusions..IMPRESSION:1. No acute intracranial abnormality.2. Bilateral mastoid effusions.Electronically signed by: LIZBETH SOTELO (May 26, 2021 18:57:22)
[2021-05-26] MEDS ORDERED: DIPRIVAN PREMIX 1 GRAM IV 1,000 MG/100 ML VIAL IV PRN (20:44)
[2021-05-26] MEDS ORDERED: CEREBYX INJ ONE (21:24)
[2021-05-27] MEDS: ZOSYN VIAL 3.375 GRAMS 3.375 G in NS 100 ML IV + SPIKE MINIBAG* 100 ML IV SCH ×2 (00:25→12:27)
[2021-05-27] MEDS: ASCORBIC ACID INJ MULTI-DOSE VIAL 1,500 MG in NS 50 ML IV 50 ML IV SCH (02:07)
[2021-05-27] MEDS: THIAMINE HCL INJ IVP SCH ×2 (02:09→12:27)
[2021-05-27] MEDS: NS 1/2 1000 ML IV 1,000 ML IV SCH ×3 (02:13→11:39)
[2021-05-27 05:43] LABS: ABG BASE EXCESS -7.3 mmol/L (-2.0-2.0); ABG HCO3 21.6 mmol/L (22-26)
[2021-05-27 05:46] LABS: ABG ALLEN TEST POS
[2021-05-27 06:08] LABS: BASOPHILS % (AUTO) 0.2 % (0.2-1.0); HEMATOCRIT 31.2 % (36.0-47.0); HEMOGLOBIN 10.5 g/dL (12.0-16.0); LYMPHOCYTES # (AUTO) 0.4 X10^3/uL (1.3-2.9); LYMPHOCYTES % (AUTO) 3.2 % (21.0-51.0); MEAN CORPUSCULAR HEMOGLOBIN 30.6 pg (27.0-34.0); MEAN CORPUSCULAR HGB CONC 33.6 g/dL (33.0-35.0); MEAN CORPUSCULAR VOLUME 90.9 fL (80.0-100.0); MEAN PLATELET VOLUME 8.3 fL (7.4-11.0); MONOCYTES # (AUTO) 0.1 x10^3/uL (0.3-0.8); MONOCYTES % (AUTO) 1.1 % (0.0-13.0); NEUTROPHILS # (AUTO) 12.4 x10^3/uL (2.2-4.8); NEUTROPHILS % (AUTO) 95.5 % (42.0-75.0); PLATELET COUNT 82 X10^3/uL (150.0-450.0); RED BLOOD COUNT 3.43 X10^6/uL (3.5-5.4); RED CELL DISTRIBUTION WIDTH 15.9 % (11.6-16.5)
[2021-05-27 06:58] LABS: ALBUMIN 1.5 g/dL (3.4-5.0); CALCIUM 6.7 mg/dL (8.5-10.1); CARBON DIOXIDE 23.3 mmol/L (21-32); COR CA(FOR HYPOALB) 8.7 mg/dL (8.5-10.1); CREATININE 3.1 mg/dL (0.55-1.02); TOTAL PROTEIN 4.7 g/dL (6.4-8.2)
--- NOTE | 2021-05-27 07:23 | RAD ---
HISTORYFollow-up COVID-19STUDYChest AP [id number]/25/2021FINDINGSHeart size is normal. Taylor are normal. Diffuse bilateral ground-g lass and some alveolar infiltrates are present and unchanged. There does appear to be some perihilar subsegmental atelectasis on the right. No pleural effusions or pneumothoraces are identified. Bony th orax is unremarkable.IMPRESSIONNo change diffuse bilateral ground-glass and some alveolar infiltrates when compared to the prior examinationLikely perihilar subsegmental atelectasis on the rightElectron ically signed by: PATY COX (May 27, 2021 07:20:35)
[2021-05-27 07:49] LABS: BAND NEUTROPHILS % 16 % (0-10); PLATELET MORPHOLOGY COMMENT NORMAL (NORMAL)
[2021-05-27] MEDS: BROVANA IN SCH (08:31)
[2021-05-27] MEDS: PULMICORT NEB TX 0.5 MG NEB SCH (08:31)
[2021-05-27] MEDS ORDERED: TYGACIL 50 MG VIAL 100 MG in NS 100 ML IV 100 ML IV ONE (09:59)
[2021-05-27] MEDS ORDERED: CEREBYX INJ IVP ONE (10:20)
[2021-05-27] MEDS ORDERED: ZEMURON 100 MG VIAL ONE (10:22)
[2021-05-27] MEDS ORDERED: DIPRIVAN VIAL 20 ML ONE (10:22)
[2021-05-27] MEDS ORDERED: BRIDION ONE (10:22)
[2021-05-27] MEDS ORDERED: NS 1/2 1000 ML IV 1,000 ML IV ONE ×2 (10:47→13:11)
[2021-05-27] MEDS ORDERED: TYGACIL 50 MG VIAL 50 MG in NS 100 ML IV 100 ML IV SCH ×2 (11:00→19:59)
--- NOTE | 2021-05-27 11:14 | RAD ---
HISTORYET tube placementSTUDYChest AP [id number]/26/2021 4:14 a.m.FINDINGSThere is an endotracheal tube at the alfredo. Retraction of 3 cm is recommended for optimal performance. There is gastric distension present. The lungs are hypoinflated and less well inflated than on the prior examination. This accentuates the heart size. Heart size is likely normal. Diffuse bilateral ground-glass and alveolar infiltrates have increased even considering a difference in film technique. No pleural effusions are identified. Bony thorax is unremarkable.IMPRESSIONET tube tip at the alfredo. Retraction of 3 cm is recommended for optimal performanceHypo inflationIncreasing diffuse bilateral ground-glass and alveolar infiltrates even considering a difference in film techniqueGastric distension.Electronically signed by: PATY COX (May 27, 2021 11:12:21)
[2021-05-27] MEDS ORDERED: DIPRIVAN PREMIX 1 GRAM IV 1,000 MG/100 ML VIAL IV PRN (11:44)
[2021-05-27] MEDS: SOLU-Medrol 125 MG VIAL IVP SCH (11:45)
[2021-05-27 12:11] LABS: ABG BASE EXCESS -5.6 mmol/L (-2.0-2.0); ABG HCO3 21.1 mmol/L (22-26)
[2021-05-27] MEDS: FLONASE NASAL SPRAY ENOSTRIL SCH (12:23)
[2021-05-27] MEDS: SYNTHROID INJ 100 mcg VIAL IVP SCH (12:26)
[2021-05-27] MEDS: PROTONIX INJ 40 MG VIAL IVP SCH (12:27)
[2021-05-27] MEDS: LEVOPHED INJ 8 MG in D5W 250 ML IV 242 ML IV PRN (13:20)
[2021-05-27] MEDS: FLAGYL IV PREMIX 500 MG BAG 500 MG/100 ML BAG IV SCH (13:22)
[2021-05-27] MEDS: HumuLIN R SUBCUT PRN (13:22)
--- NOTE | 2021-05-27 14:25 | RAD ---
HISTORYOG ET placementSTUDYAP upper abdomenCOMPARISONChest x-ray same dateFINDINGSThere is an OG T present with its tip and side hole well within the stomach. Previously noted gastric distension is resolved.IMPRESSIONAs aboveElectronically signed by: PATY COX (May 27, 2021 14:23:12)
[2021-05-27 16:14] VITALS: BP 125/60
== END 2021-05-27 15:00 | disposition short-term general hospital (02) | DRG 208 ==
LOC: ER 08:52 → OBS 11:57 → MED/SURG 17:06 → ICU 05-21 22:22
PROVIDERS: ADMIT Obstetrics & Gynecology Obstetrics; ATTEND Obstetrics & Gynecology Obstetrics
DX: I10 Essential (primary) hypertension; J12.82 Pneumonia due to coronavirus disease 2019; E11.65 Type 2 diabetes mellitus with hyperglycemia; E78.2 Mixed hyperlipidemia; R65.21 Severe sepsis with septic shock; U07.1 COVID-19; R79.82 Elevated C-reactive protein (CRP); R79.89 Other specified abnormal findings of blood chemistry; R06.02 Shortness of breath; A41.89 Other specified sepsis; E03.8 Other specified hypothyroidism; I87.2 Venous insufficiency (chronic) (peripheral)